=== PATIENT | female | born 1975 | race Caucasian/White ===

== ENCOUNTER → 2021-01-04 | Outpatient (CLI) | payer BC ==
--- NOTE | 2021-01-04 12:05 | CT ---
EXAMINATION TYPE: CT abdomen pelvis wo con DATE OF EXAM: 01/04/2021 HISTORY: Left flank pain for 4 Days radiating to lower back CT DLP: 583 mGycm. Automated Exposure Control for Dose Reduction was Utilized. TECHNIQUE: CT scan of the abdomen and pelvis is performed without oral or IV contrast. COMPARISON: NONE FINDINGS: Within the limitations of a non-contrast study, the following observations are made. LUNG BASES: No significant abnormality is appreciated. LIVER/GB: No significant abnormality is appreciated. PANCREAS: No significant abnormality is seen. SPLEEN: No significant abnormality is seen. ADRENALS: No significant abnormality is seen. KIDNEYS: No renal stones seen bilaterally. No hydronephrosis or obstructing ureteral calculi bilatera lly. Small amount of free fluid in the right pelvic cul-de-sac axial image 113. Left ovary normal in size with 1.5 cm low dense probable cystic lesion or thin-walled cyst axial image 112. Right ovary [place] s 2.0 x 1.3 cm lesion with predominantly fat density and some central curvilinear and tiny nodular so ft tissue density along with punctate 2 mm calcific focus superior lateral aspect coronal image 30. F indings consistent with small ovarian dermoid. BOWEL: Suboptimal evaluation without enteric contrast. No suspicious small or large bowel dilatation. Low-lying cecum into the right pelvis.. GENITAL ORGANS: Anteverted uterus. Scattered pelvic phleboliths.. LYMPH NODES: No greater than 1cm abdominal or pelvic lymph nodes are appreciated. OSSEOUS STRUCTURES: Slight grade 1 retrolisthesis L2 on L3. OTHER: No significant additional abnormality is seen. IMPRESSION: No renal stones or hydronephrosis is seen bilaterally. Incidental 2.0 cm right ovarian de rmoid or teratoma. No acute findings are evident.
== END ==
LOC: RADCTMAIN 11:41
PROVIDERS: ATTEND Internal Medicine
DX: R10.9 Unspecified abdominal pain (principal)
CPT/HCPCS: 74176

== ENCOUNTER 2024-12-27 12:30 | Day surgery (SDC) | payer BC ==
[2024-12-25 09:48] VITALS: BMI 22.4
[2024-12-27] MEDS: LACTATED RINGERS 1,000 ML IV ONE (13:56)
[2024-12-27 14:11] VITALS: TEMP 97.3
[2024-12-27] MEDS: LACTATED RINGERS 1,000 ML IV SCH (14:22)
[2024-12-27] MEDS ORDERED: PROPOFOL 10 MG/ML 20 ML VIAL IV ONE (15:13)
--- NOTE | 2024-12-27 15:29 | P.PCN ---
Date of Procedure: 12/27/24 Procedure(s) Performed: BRIEF HISTORY: Patient is a 49-year-old pleasant female scheduled for an elective colonoscopy as a part of screening for colon cancer. PROCEDURE PERFORMED: Colonoscopy. PREOPERATIVE DIAGNOSIS: Screening for colon cancer. IV sedation per Anesthesia. PROCEDURE: After informed consent was obtained, the patient, was brought into the endoscopy unit. IV sedation was administered by Anesthesia under continuous monitoring. Digital rectal examination was normal. Initially the Olympus CF-160 flexible video colonoscope was then inserted in the rectum, gradually advanced into the cecum without any difficulty. Careful examination was performed as the scope was gradually being withdrawn. Ileocecal valve and the appendiceal orifice were visualized and appeared normal. Prep was good.. Mucosa of the cecum, ascending colon, transverse colon, descending colon, sigmoid colon, and rectum appeared normal. Retroflexion was performed in the rectum and small internal s were seen. The patient tolerated the procedure well. IMPRESSION: Normal-appearing colon from rectum to cecum no evidence of colorectal neoplasia.. Small internal hemorrhoids. RECOMMENDATIONS: Findings of this examination were discussed with the patient as well as her family.. She was advised to have repeat screening colonoscopy in 10 years.
[2024-12-27 15:41] VITALS: RESP 16
[2024-12-27 15:52] VITALS: BP 124/80; PULSE 74
== END 2024-12-27 16:07 | disposition home or self-care (01) ==
LOC: ORWHC2ENDO 12:30
PROVIDERS: ATTEND Internal Medicine Gastroenterology
DX: Z12.11 Encounter for screening for malignant neoplasm of colon (principal); K64.8 Other hemorrhoids; G43.909 Migraine, unspecified, not intractable, without status migrainosus
CPT/HCPCS: 81025; 45378; J2704